=== PATIENT | female | born 1955 | race Caucasian/White ===

== ENCOUNTER 2021-01-12 15:03 | Inpatient (IN) | payer MEDICARE ==
[~2021-01-12] VITALS: Ht 167.6 cm; Wt 83.9 kg
[2021-01-12 19:41] LABS: HEMOGLOBIN 10.8 gm/dl (12.3-15.3); RED BLOOD COUNT 3.06 M/UL (4.00-5.10); WHITE BLOOD COUNT 7.4 K/UL (4.5-11.0)
[2021-01-12] MEDS ORDERED: OMEPRAZOLE20 MG PO (23:54)
[2021-01-13] MEDS ORDERED: OMEPRAZOLE20 MG PO (00:32)
[2021-01-13] MEDS ORDERED: AMLODIPINE BES2.5 MG PO (00:32)
[2021-01-13] MEDS ORDERED: FUROSEMIDE40 MG PO (00:33)
[2021-01-13] MEDS ORDERED: ZOFRAN4 MG PO (00:33)
[2021-01-13] MEDS ORDERED: LEVOTHYROXINE75 MC1 PO (00:34)
[2021-01-13] MEDS ORDERED: GABAPENTIN600 MG PO (00:40)
[2021-01-13] MEDS ORDERED: SINGULAIR10 MG PO (00:40)
[2021-01-13] MEDS ORDERED: LIPITOR80 MG PO (00:41)
[2021-01-13] MEDS ORDERED: LOSARTAN POTASS50 MG PO (00:42)
[2021-01-13] MEDS ORDERED: KLOR-CON M2020 MEQ PO (00:42)
[2021-01-13] MEDS ORDERED: GLUCOPHAGE 500500 MG PO (00:43)
[2021-01-13] MEDS ORDERED: ZANAFLEX 4 MG TA4 MG PO (00:44)
[2021-01-13] MEDS ORDERED: SPIRIVA18 MCG INH (00:49)
[2021-01-13] MEDS ORDERED: ALBUTEROL2.5 MG/3 M INH (00:49)
[2021-01-14 05:21] LABS: HEMOGLOBIN 9.2 gm/dl (12.3-15.3)
[2021-01-14 05:22] LABS: RED BLOOD COUNT 2.63 M/UL (4.00-5.10); WHITE BLOOD COUNT 9.9 K/UL (4.5-11.0)
[2021-01-14 06:18] LABS: BUN/CREATININE RATIO 21 (0-10)
[2021-01-15 03:05] LABS: HEMOGLOBIN 8.5 gm/dl (12.3-15.3); RED BLOOD COUNT 2.5 M/UL (4.00-5.10); WHITE BLOOD COUNT 8.5 K/UL (4.5-11.0)
[2021-01-15 03:39] LABS: BUN/CREATININE RATIO 20 (0-10)
[2021-01-15] MEDS ORDERED: ENOXAPARIN40 MG/0.4 SC (08:55)
[2021-01-15] MEDS ORDERED: PERCOCET 7.5-31 EACH PO (10:27)
[2021-01-15] MEDS ORDERED: ASPIRIN EC81 MG PO (11:36)
[2021-03-05] MEDS ORDERED: ASPIRIN 325MG325 MG PO (06:17)
== END 2021-01-15 14:03 | disposition home health service (06) | DRG 493 ==
LOC: ER1 15:03 → CDU 18:55 → M/S 18:55
PROVIDERS: Orthopaedic Surgery; Physician Assistant; ADMIT Internal Medicine
PROC: 0QHG05Z Insertion of External Fixation Device into Right Tibia, Open Approach (ICD-10-PCS; principal; 2021-01-13 12:00)
DX: S82.251A Displaced comminuted fracture of shaft of right tibia, initial encounter for closed fracture (principal); C78.00 Secondary malignant neoplasm of unspecified lung; D62 Acute posthemorrhagic anemia; S82.451A Displaced comminuted fracture of shaft of right fibula, initial encounter for closed fracture; S82.871A Displaced pilon fracture of right tibia, initial encounter for closed fracture; E11.9 Type 2 diabetes mellitus without complications; I10 Essential (primary) hypertension; J44.9 Chronic obstructive pulmonary disease, unspecified; E78.5 Hyperlipidemia, unspecified; W10.9XXA Fall (on) (from) unspecified stairs and steps, initial encounter; Z96.653 Presence of artificial knee joint, bilateral; Y93.01 Activity, walking, marching and hiking; M19.90 Unspecified osteoarthritis, unspecified site; F17.210 Nicotine dependence, cigarettes, uncomplicated; C32.9 Malignant neoplasm of larynx, unspecified; Z20.822 Contact with and (suspected) exposure to COVID-19; Z88.2 Allergy status to sulfonamides; Z90.49 Acquired absence of other specified parts of digestive tract; Z90.710 Acquired absence of both cervix and uterus; Z98.890 Other specified postprocedural states; Z82.49 Family history of ischemic heart disease and other diseases of the circulatory system; Y92.89 Other specified places as the place of occurrence of the external cause; Y99.8 Other external cause status; Z99.81 Dependence on supplemental oxygen
CPT/HCPCS: 29515; 36415; 71045; 73562; 73590; 73610; 73630; 73700; 76000; 80048; 80053; 82962; 85025; 93005; 94640; 94664; 94760; 99285; C1713; J0171; J0690; J1100; J1170; J1650; J1885; J2270; J2370; J2405; J2704; J2710; J2795; J3010; J7030; J7120; U0002

== ENCOUNTER → 2021-03-05 | Day surgery (SDC) | payer MEDICARE, BC ==
[~2021-03-05] MED LIST: ALBUTEROL2.5 MG/3 M INH; AMLODIPINE BES2.5 MG PO; ASPIRIN 325MG325 MG PO; ASPIRIN EC81 MG PO; ENOXAPARIN40 MG/0.4 SC; FUROSEMIDE40 MG PO; GABAPENTIN600 MG PO; GLUCOPHAGE 500500 MG PO; KLOR-CON M2020 MEQ PO; LEVOTHYROXINE75 MC1 PO; LIPITOR80 MG PO; LOSARTAN POTASS50 MG PO; OMEPRAZOLE20 MG PO; PERCOCET 7.5-31 EACH PO; SINGULAIR10 MG PO; SPIRIVA18 MCG INH; ZANAFLEX 4 MG TA4 MG PO; ZOFRAN4 MG PO
[2021-03-05 06:49] LABS: HEMOGLOBIN 9.6 gm/dl (12.3-15.3); RED BLOOD COUNT 3.08 M/UL (4.00-5.10); WHITE BLOOD COUNT 12.5 K/UL (4.5-11.0)
[2021-03-05 07:07] LABS: BUN/CREATININE RATIO 20 (0-10)
== END | disposition home or self-care (01) ==
LOC: OR 05:24
PROVIDERS: Orthopaedic Surgery
DX: S82.301D Unspecified fracture of lower end of right tibia, subsequent encounter for closed fracture with routine healing (principal); S82.831D Other fracture of upper and lower end of right fibula, subsequent encounter for closed fracture with routine healing; J44.9 Chronic obstructive pulmonary disease, unspecified; I10 Essential (primary) hypertension; E78.00 Pure hypercholesterolemia, unspecified; K21.9 Gastro-esophageal reflux disease without esophagitis; M06.9 Rheumatoid arthritis, unspecified; E11.9 Type 2 diabetes mellitus without complications; Z98.51 Tubal ligation status; Z79.84 Long term (current) use of oral hypoglycemic drugs; Z20.822 Contact with and (suspected) exposure to COVID-19; F17.200 Nicotine dependence, unspecified, uncomplicated; E03.9 Hypothyroidism, unspecified; Z96.653 Presence of artificial knee joint, bilateral
CPT/HCPCS: 80048; 85025; J0690; J1100; J1642; J2001; J2405; J2704; J3010; J7030; J7120